=== PATIENT | female | born 1980 | race Caucasian/White ===

== ENCOUNTER 2018-02-12 06:09 | Inpatient (IN) | payer BC ==
[2018-02-12] MEDS ORDERED: LIDOCAINE 1% (PF) 10 MG/ML (30 ML SDV) SQ PRN (06:26)
[2018-02-12] MEDS ORDERED: OXYTOCIN 10 UNIT/ML 1 ML VIAL IM PRN (06:26)
[2018-02-12] MEDS ORDERED: METHYLERGONOVINE 0.2 MG/ML 1 ML AMP IM PRN (06:26)
[2018-02-12] MEDS ORDERED: TERBUTALINE 1 MG/ML VIAL SQ PRN (06:26)
[2018-02-12] MEDS ORDERED: CARBOPROST TROMETHAMINE 250 MCG/ML 1 ML AMP IM PRN (06:26)
[2018-02-12] MEDS ORDERED: LACTATED RINGERS 1,000 ML IV SCH (06:30)
[2018-02-12] MEDS ORDERED: OXYTOCIN 20 UNITS/1000 ML NS 1,000 ML IV SCH ×2 (06:30→17:00)
[2018-02-12] MEDS: LACTATED RINGERS 1,000 ML IV SCH ×3 (06:44→14:42)
[2018-02-12 06:46] LABS: Basophils % (A) 0 %; Eosinophils # (A) 0.3 k/uL (0-0.7); Eosinophils % (A) 2 %; HCT 34.8 % (34.0-46.0); HGB 11.9 gm/dL (11.4-16.0); Lymphocytes # (A) 1.9 k/uL (1.0-4.8); Lymphocytes % (A) 15 %; MCH 28.8 pg (25.0-35.0); MCHC 34.3 g/dL (31.0-37.0); MCV 83.9 fL (80.0-100.0); Mean Platelet Volume 7.5; Monocytes # (A) 0.7 k/uL (0-1.0); Monocytes % (A) 6 %; Neutrophils # (A) 8.9 k/uL (1.3-7.7); Neutrophils % (A) 74 %; Platelet Count 263 k/uL (150-450); RBC 4.14 m/uL (3.80-5.40); RDW 13.6 % (11.5-15.5); WBC 12.1 k/uL (3.8-10.6)
[2018-02-12 07:00] VITALS: BMI 31.6
--- NOTE | 2018-02-12 09:36 | P.HPOB ---
History of Present Illness H&P Date: 02/12/18 Chief Complaint: IUP @ 39 weeks This is a 37yo at 39 3/7 that presents for elective induction of labor. she states she was nicole at home prior to admission, no LOF or VB she is noting good FM. on blood work blood type is Review of Systems Constitutional: Denies fatigue Respiratory: Denies cough, Denies dyspnea Gastrointestinal: Denies constipation, Denies diarrhea Genitourinary: Reports , Denies dysuria Past Medical History Past Medical History: No Reported History History of Any Multi-Drug Resistant Organisms: None Reported Past Surgical History: No Surgical Hx Reported Past Anesthesia/Blood Transfusion Reactions: No Reported Reaction Past Psychological History: ADD/ADHD Additional Psychological History / Comment(s): pt states stopped taking adderall early in Smoking Status: Never smoker Past Alcohol Use History: None Reported Past Drug Use History: None Reported - Past Family History Mother Family Medical History: Cancer Additional Family Medical History / Comment(s): breast cancer. diseased 29 years ago. Medications and Allergies Home Medications Medication Instructions Recorded Confirmed Type No Known Home Medications [No 02/12/18 02/12/18 History Known Home Medications] Allergies Allergy/AdvReac Type Severity Reaction Status Date / Time No Known Allergies Allergy Verified 02/12/18 06:25 Exam Osteopathic Statement: *. No significant issues noted on an osteopathic structural exam other than those noted in the History and Physical/Consult. - Vital Signs Vital signs: Vital Signs Temp Pulse Resp BP 02/12/18 06:24 97.8 F 83 16 144/91 Intake and Output 02/11/18 02/12/18 02/12/18 22:59 06:59 14:59 Other: Weight 83.461 kg - OBG Physical Exam Abdomen: gravid Cervix: 3/50/-2, SROM with clear fluid noted Uterus: enlarged Results Result Diagrams: 02/12/18 06:35 Abnormal Lab Results - Last 24 Hours (Table) 02/12/18 Range/Units 06:35 WBC 12.1 H (3.8-10.6) k/uL Neutrophils # 8.9 H (1.3-7.7) k/uL Assessment and Plan (1) Term Narrative/Plan: admitted to labor and delivery for pitocin induction of labor, pt desires epidural when uncomfortable. anticipate today Current Visit: Yes Status: Acute Code(s): Z34.80 - ENCOUNTER FOR SUPRVSN OF NORMAL , UNSP TRIMESTER SNOMED Code(s): 34849789 (2) AMA (advanced maternal age) multigravida 35+ Current Visit: Yes Status: Acute Code(s): O09.529 - SUPERVISION OF ELDERLY MULTIGRAVIDA, UNSPECIFIED TRIMESTER SNOMED Code(s): 544035213 Time with Patient: Less than 30
[2018-02-12] MEDS ORDERED: fentaNYL (PF) 50 MCG/ML 5 ML AMP ONE (12:34)
[2018-02-12] MEDS ORDERED: BUPIVACAINE (PF) 0.25% 30 ML VIAL ONE (12:34)
[2018-02-12] MEDS ORDERED: SODIUM CHLORIDE 0.9% 100 ML BAG ONE (12:34)
[2018-02-12] MEDS ORDERED: BUPIVACAINE (PF) 0.25% 25 ML, fentaNYL (PF) 200 MCG in SODIUM CHLORIDE 0.9% 71 ML EPIDURAL ONE (13:19)
[2018-02-12] MEDS ORDERED: ACETAMINOPHEN TAB 325 MG TAB PO PRN (16:46)
[2018-02-12] MEDS ORDERED: diphenhydrAMINE 50 MG/ML 1 ML VIAL IVP PRN ×2 (16:46)
[2018-02-12] MEDS ORDERED: LANOLIN CREAM 5 GM TUBE TOPICAL PRN (16:46)
[2018-02-12] MEDS ORDERED: HYDROCORTISONE 2.5% RECTAL CREAM 30 GM TUBE RECTAL PRN (16:46)
[2018-02-12] MEDS ORDERED: diphenhydrAMINE 50 MG CAP PO PRN (16:46)
[2018-02-12] MEDS ORDERED: SIMETHICONE 80 MG CHEWABLE PO PRN (16:46)
[2018-02-12] MEDS ORDERED: diphenhydrAMINE 25 MG CAP PO PRN (16:46)
[2018-02-12] MEDS ORDERED: BENZOCAINE/MENTHOL SPRAY 1 GM/SPRAY AEROSOL TOPICAL PRN (16:46)
[2018-02-12] MEDS ORDERED: ZOLPIDEM 5 MG TAB PO PRN (16:46)
[2018-02-12] MEDS ORDERED: Acetaminophen-Codeine 300-30mg TAB PO PRN ×2 (16:46)
[2018-02-12] MEDS ORDERED: WITCH HAZEL 1 EACH MED..PAD TOPICAL PRN (16:46)
--- NOTE | 2018-02-12 16:46 | P.PROBDLV ---
Vaginal Delivery Note - . Vaginal Delivery Note: This is a 37-year-old 3 para 2001 at 39-3/7 weeks with an estimated due date of 318. Patient presented to labor and delivery for elective induction of labor. Patient was started on Pitocin induction of labor per protocol and progressed through labor amniotomy was performed and clear fluid was noted. Soon afterwards patient did receive an epidural for pain control. Patient progressed through labor slowly throughout labor and had a spontaneous vaginal delivery of a viable female at 1629, weight of 7 lbs. 10 oz., Apgars of 8 and 9 at one and 5 minutes respectively. "french" was brought down to +2 station patient began completing infant then was noted to be head was delivered gently loose nuchal was noted and this was delivered through, the anterior shoulder was then delivered carefully followed by upward traction to deliver the posterior shoulder infant was then placed on the mom's abdomen. The umbilical cord was then doubly clamped and cut. The umbilical cord was -3 vessels in it was delivered spontaneously intact. Afterwards uterus is noted to be firm and below the umbilicus. A small first-degree vaginal laceration was noted this was repaired in the usual fashion with 3-0 Vicryl. Estimated blood loss was partially 300 mL. Next Patient and infant tolerated delivery well and are resting comfortably
[2018-02-12] MEDS: IBUPROFEN 600 MG TAB PO PRN (17:14)
[2018-02-12] MEDS: SENNOSIDES-DOCUSATE SODIUM 1 EACH TAB PO SCH (20:08)
[2018-02-13] MEDS: IBUPROFEN 600 MG TAB PO PRN ×2 (00:13→06:15)
[2018-02-13] MEDS: SENNOSIDES-DOCUSATE SODIUM 1 EACH TAB PO SCH (08:05)
[2018-02-13 08:15] VITALS: BP 119/66; PULSE 75; RESP 18; TEMP 98.1
--- NOTE | 2018-02-13 08:15 | P.DS ---
Providers Date of admission: 02/12/18 06:09 Expected date of discharge: 02/13/18 Attending physician: Jazmin Gallego Primary care physician: Stated None - Discharge Diagnosis(es) (1) Term Current Visit: Yes Status: Acute (2) AMA (advanced maternal age) multigravida 35+ Current Visit: Yes Status: Acute (3) Status post vaginal delivery Current Visit: Yes Status: Acute Hospital Course: This is a very pleasant 37-year-old at 39-3/7 weeks that presented to labor and delivery yesterday for elective induction of labor. Patient was started on Pitocin induction and progressed through labor eventually becoming complete having a spontaneous vaginal delivery of a viable female infant. Patient is doing well and denies concerns. She is ambulating and voiding without difficulty. She is tolerating a regular diet without nausea or vomiting. She states her lochia is minimal, breast-feeding is going well. She does wish to be discharged home today. Patient Condition at Discharge: Good Plan - Discharge Summary New Discharge Prescriptions: No Action No Known Home Medications [No Known Home Medications] Discharge Medication List No Known Home Medications [No Known Home Medications] 02/12/18 [History] Follow up Appointment(s)/Referral(s): Jazmin Gallego DO [Doctor of Osteopathic Medicine] - 4 Weeks Patient Instructions/Handouts: Vaginal Delivery (DC), Your Baby ( DC) Discharge Disposition: HOME SELF-CARE
== END 2018-02-13 17:53 | disposition home or self-care (01) | DRG 775 ==
LOC: 4FBP 06:09
PROVIDERS: ADMIT Obstetrics & Gynecology Obstetrics; ATTEND Obstetrics & Gynecology Obstetrics
PROC: 3E033VJ Introduction of Other Hormone into Peripheral Vein, Percutaneous Approach (ICD-10-PCS; principal; 2018-02-12)
PROC: 0HQ9XZZ Repair Perineum Skin, External Approach (ICD-10-PCS; principal; 2018-02-12)
PROC: 3E0R3NZ Introduction of Analgesics, Hypnotics, Sedatives into Spinal Canal, Percutaneous Approach (ICD-10-PCS; principal; 2018-02-12)
PROC: 10907ZC Drainage of Amniotic Fluid, Therapeutic from Products of Conception, Via Natural or Artificial Opening (ICD-10-PCS; principal; 2018-02-12)
PROC: 00HU33Z Insertion of Infusion Device into Spinal Canal, Percutaneous Approach (ICD-10-PCS; principal; 2018-02-12)
PROC: 10E0XZZ Delivery of Products of Conception, External Approach (ICD-10-PCS; principal; 2018-02-12)
DX: O70.0 First degree perineal laceration during delivery (principal); O99.343 Other mental disorders complicating pregnancy, third trimester; F90.9 Attention-deficit hyperactivity disorder, unspecified type; O69.81X0 Labor and delivery complicated by cord around neck, without compression, not applicable or unspecified; Z3A.39 39 weeks gestation of pregnancy; Z80.3 Family history of malignant neoplasm of breast; Z37.0 Single live birth
CPT/HCPCS: 85025; 88307